=== PATIENT | female | born 1955 | race Hispanic/Latino ===

== ENCOUNTER 2023-10-01 19:46 | Inpatient (IN) | payer OTHER, MEDICARE ==
[~2023-10-01] VITALS: Ht 152.4 cm; Wt 69.5 kg
[~2023-10-01 19:46] MED LIST: CYCL10TA16 PO; IBUP-2070 PO
[2023-10-01] MEDS: ONDANSETRON 4MG INJ IVP ONE (20:30)
[2023-10-01] MEDS ORDERED: PROPOFOL 10 MG/ML 20ML VIAL IV SCH (20:30)
[2023-10-01 20:39] LABS: BASOPHILS # (AUTO) 0.04 K/uL (0.00-0.20); BASOPHILS % (AUTO) 0.4 % (0.0-5.0); EOSINOPHILS # (AUTO) 0.11 K/uL (0.00-0.70); EOSINOPHILS % (AUTO) 1.2 % (0.0-8.0); IMMATURE GRANULOCYTE ABSOLUTE 0.04 K/uL (0-1); LYMPHOCYTES # (AUTO) 2.7 K/uL (1.0-4.8); LYMPHOCYTES % (AUTO) 30.2 % (21.0-51.0); MEAN CORPUSCULAR HEMOGLOBIN 28.1 pg (27.0-33.0); MEAN CORPUSCULAR HGB CONC 32.5 g/dL (32.0-36.0); MEAN CORPUSCULAR VOLUME 86.6 fL (79-99); MONOCYTES # (AUTO) 0.6 K/uL (0.1-1.0); MONOCYTES % (AUTO) 7.1 % (3.0-13.0); NEUTROPHILS # (AUTO) 5.4 K/uL (1.8-7.7); NEUTROPHILS % (AUTO) 60.7 % (40.0-77.0); PLATELET COUNT (AUTO) 283 K/uL (130-400); RED BLOOD CELL COUNT(AUTO) 4.62 MIL/uL (4.00-5.50); RED CELL DISTRIBUTION WIDTH 15.2 % (11.0-15.5); WHITE BLOOD COUNT (AUTO) 8.9 K/uL (4.8-10.8)
[2023-10-01 20:41] VITALS: PULSE 90; RESP 21; O2SAT 100
[2023-10-01] MEDS: PROPOFOL 10 MG/ML 20ML VIAL IV SCH (20:45)
[2023-10-01 20:48] LABS: CREATININE 0.9 mg/dL (0.5-1.5); POTASSIUM 3.6 mmol/L (3.5-5.1)
[2023-10-01 20:52] LABS: ALBUMIN 3.4 g/dL (3.5-5.0); BILIRUBIN,TOTAL 0.3 mg/dL (0.2-1.0); TOTAL PROTEIN, SERUM 8.2 g/dL (6.0-8.3)
[2023-10-01] MEDS: MORPHINE 4 MG SYG ONE (20:57)
[2023-10-01] MEDS: ONDANSETRON 4MG INJ ONE (20:57)
[2023-10-01] MEDS: PROPOFOL 10 MG/ML 20ML VIAL IV ONE (21:03)
[2023-10-01] MEDS: MORPHINE 4 MG SYG IVP ONE (21:15)
[2023-10-01 22:39] LABS: APPEARANCE,URINE CLEAR (CLEAR); BILIRUBIN,URINE NEGATIVE (NEGATIVE); COLOR,URINE LIGHT-YELLOW (YELLOW); GLUCOSE, URINE (UA) NEGATIVE (NEGATIVE); KETONES,URINE NEGATIVE (NEGATIVE); LEUKOCYTE ESTERASE ,URINE NEGATIVE Leu/uL (NEGATIVE); NITRATE,URINE NEGATIVE (NEGATIVE); OCCULT BLOOD,URINE NEGATIVE (NEGATIVE); PH,URINE 5.5 (5.0-8.0); PROTEIN,URINE NEGATIVE (NEGATIVE); UROBILINOGEN,URINE 0.2 mg/dL (0.2-1.0)
[2023-10-01 22:42] LABS: ADD UA MICROSCOPIC YES
[2023-10-01 22:43] LABS: BACTERIA,URINE RARE /HPF (None Seen); SQUAMOUS EPITHELIAL CELL,UR RARE /HPF (0-2)
[2023-10-01] MEDS ORDERED: MORPHINE 4 MG SYG IM PRN (23:30)
[2023-10-01] MEDS ORDERED: ONDANSETRON 4MG INJ IVP PRN (23:30)
[2023-10-02] VITALS (7 sets, daily range): BP systolic 116–144; BP diastolic 72–89; PULSE 82–101; RESP 16–20; O2SAT 96–97
[2023-10-02] MEDS: MORPHINE 4 MG SYG IV PRN (01:08)
[2023-10-02] MEDS: MORPHINE 4 MG SYG ONE (01:08)
[2023-10-02] MEDS ORDERED: LEVO50CA4 PO (05:36)
[2023-10-02] MEDS ORDERED: ALBU6.7H14 IH (05:36)
[2023-10-02] MEDS ORDERED: [UNRECOGNIZED DRUG - CODE] PO (05:37)
[2023-10-02] MEDS: MORPHINE 4 MG SYG IM PRN (15:31)
[2023-10-03] VITALS: BP 122/76; PULSE 88; RESP 19
[2023-10-03] MEDS: MORPHINE 4 MG SYG IV PRN (03:50)
[2023-10-03 04:00] VITALS: BP 127/82; PULSE 87; RESP 20
[2023-10-03 08:00] VITALS: BP 127/74; PULSE 84; RESP 20; O2SAT 97
[2023-10-03 12:00] VITALS: BP 119/69; PULSE 82; RESP 20
[2023-10-03 16:00] VITALS: BP 119/66; PULSE 90; RESP 20
[2023-10-03 20:00] VITALS: BP 112/72; PULSE 95; RESP 20; O2SAT 96
[2023-10-03] MEDS: CYCLOBENZAPRINE HCL 10 MG TABLET PO PRN (20:57)
[2023-10-03] MEDS: TRAMADOL HCL 50 MG TABLET PO PRN (20:57)
[2023-10-04 00:18] VITALS: BP 107/73; PULSE 92; RESP 18
[2023-10-04 04:05] LABS: BASOPHILS # (AUTO) 0.03 K/uL (0.00-0.20); BASOPHILS % (AUTO) 0.3 % (0.0-5.0); EOSINOPHILS # (AUTO) 0.17 K/uL (0.00-0.70); EOSINOPHILS % (AUTO) 1.7 % (0.0-8.0); HEMATOCRIT 33.2 % (36-48); IMMATURE GRANULOCYTE ABSOLUTE 0.04 K/uL (0-1); LYMPHOCYTES # (AUTO) 1.9 K/uL (1.0-4.8); LYMPHOCYTES % (AUTO) 19.3 % (21.0-51.0); MEAN CORPUSCULAR HEMOGLOBIN 27.6 pg (27.0-33.0); MEAN CORPUSCULAR HGB CONC 32.2 g/dL (32.0-36.0); MEAN CORPUSCULAR VOLUME 85.8 fL (79-99); MONOCYTES # (AUTO) 1.3 K/uL (0.1-1.0); MONOCYTES % (AUTO) 12.9 % (3.0-13.0); NEUTROPHILS # (AUTO) 6.4 K/uL (1.8-7.7); NEUTROPHILS % (AUTO) 65.4 % (40.0-77.0); PLATELET COUNT (AUTO) 221 K/uL (130-400); RED BLOOD CELL COUNT(AUTO) 3.87 MIL/uL (4.00-5.50); RED CELL DISTRIBUTION WIDTH 15.2 % (11.0-15.5); WHITE BLOOD COUNT (AUTO) 9.8 K/uL (4.8-10.8)
[2023-10-04 04:19] LABS: ALBUMIN 2.6 g/dL (3.5-5.0); BILIRUBIN,TOTAL 0.6 mg/dL (0.2-1.0); CREATININE 0.7 mg/dL (0.5-1.5); POTASSIUM 3.8 mmol/L (3.5-5.1); TOTAL PROTEIN, SERUM 7.3 g/dL (6.0-8.3)
[2023-10-04 04:22] VITALS: BP 109/66; PULSE 84; RESP 18
[2023-10-04 08:00] VITALS: BP 126/76; PULSE 82; RESP 18; O2SAT 97
[2023-10-04 11:47] VITALS: BP 138/76; PULSE 89; RESP 16
[2023-10-04 16:00] VITALS: BP 111/76; PULSE 96; RESP 18
[2023-10-04 20:00] VITALS: BP 121/75; PULSE 93; RESP 20; O2SAT 98
[2023-10-05] VITALS (28 sets, daily range): BP systolic 102–145; BP diastolic 55–87; PULSE 75–105; RESP 15–20; O2SAT 97–98
[2023-10-05] MEDS ORDERED: ROCURONIUM BROMIDE 10MG/1ML 5ML VL ONE (11:19)
[2023-10-05] MEDS ORDERED: MIDAZOLAM HCL 1 MG/ML 2ML VIAL ONE (11:19)
[2023-10-05] MEDS ORDERED: PROPOFOL 10 MG/ML 20ML VIAL IV ONE (11:19)
[2023-10-05] MEDS ORDERED: SUCCINYLCHOLINE CHLORIDE 20 MG/ML 10 ML VIAL ONE (11:19)
[2023-10-05] MEDS ORDERED: FENTANYL CITRATE PF 50 MCG/1 ML 2ML VIAL ONE (11:19)
[2023-10-05] MEDS: CEFAZOLIN SODIUM 2 GM VIAL IVPB ONE (11:50)
[2023-10-05] MEDS ORDERED: CEFAZOLIN SODIUM 1 GM VIAL ONE (11:58)
[2023-10-05] MEDS: HYDROCODONE/ACETAMINOPHEN 5/325 MG TAB PO PRN (18:46)
[2023-10-05] MEDS: CEFAZOLIN SODIUM 2 GM VIAL IVPB SCH (19:50)
[2023-10-05] MEDS: CEFAZOLIN SODIUM 1 GM VIAL IVPB SCH (20:18)
[2023-10-05] MEDS ORDERED: HYDROCODONE/ACETAMINOPHEN 5/325 MG TAB PO PRN ×2 (20:30)
[2023-10-06] VITALS (9 sets, daily range): BP systolic 98–128; BP diastolic 58–70; PULSE 54–90; RESP 16–20; O2SAT 95–98
[2023-10-07] VITALS (7 sets, daily range): BP systolic 105–127; BP diastolic 47–70; PULSE 90–94; RESP 17–20; O2SAT 97–98
[2023-10-08] VITALS: BP 116/67; PULSE 86; RESP 18
[2023-10-08 04:00] VITALS: BP 122/69; PULSE 82; RESP 18
[2023-10-08 08:00] VITALS: BP 113/72; PULSE 85; RESP 20; O2SAT 97
[2023-10-08 11:00] VITALS: BP 123/68; PULSE 88; RESP 18
[2023-10-08 16:00] VITALS: BP 128/78; PULSE 94; RESP 18
[2023-10-08 20:00] VITALS: BP 115/69; PULSE 91; RESP 20
[2023-10-09] VITALS (7 sets, daily range): BP systolic 116–133; BP diastolic 68–79; PULSE 75–91; RESP 16–20; O2SAT 97
[2023-10-09] MEDS: DOCUSATE SODIUM 100 MG CAP PO SCH (13:00)
[2023-10-09 13:16] LABS: BASOPHILS # (AUTO) 0.03 K/uL (0.00-0.20); BASOPHILS % (AUTO) 0.4 % (0.0-5.0); EOSINOPHILS # (AUTO) 0.16 K/uL (0.00-0.70); EOSINOPHILS % (AUTO) 2.3 % (0.0-8.0); HEMATOCRIT 31.9 % (36-48); IMMATURE GRANULOCYTE ABSOLUTE 0.02 K/uL (0-1); LYMPHOCYTES # (AUTO) 1.5 K/uL (1.0-4.8); LYMPHOCYTES % (AUTO) 21.2 % (21.0-51.0); MEAN CORPUSCULAR HGB CONC 32.6 g/dL (32.0-36.0); MEAN CORPUSCULAR VOLUME 85.8 fL (79-99); MONOCYTES # (AUTO) 0.7 K/uL (0.1-1.0); MONOCYTES % (AUTO) 10.1 % (3.0-13.0); NEUTROPHILS # (AUTO) 4.6 K/uL (1.8-7.7); NEUTROPHILS % (AUTO) 65.7 % (40.0-77.0); PLATELET COUNT (AUTO) 378 K/uL (130-400); RED BLOOD CELL COUNT(AUTO) 3.72 MIL/uL (4.00-5.50); RED CELL DISTRIBUTION WIDTH 15.4 % (11.0-15.5)
[2023-10-09 13:29] LABS: INR 0.97 (0.85-1.15); PROTHROMBIN TIME 11.3 SEC (9.6-11.6)
[2023-10-09 13:30] LABS: PARTIAL THROMBOPLASTIN TIME 30.1 SEC (26.3-35.5)
[2023-10-09 13:46] LABS: ALBUMIN 2.2 g/dL (3.5-5.0); BILIRUBIN,TOTAL 0.4 mg/dL (0.2-1.0); CREATININE 0.8 mg/dL (0.5-1.5); MAGNESIUM 1.9 mg/dL (1.80-2.40); POTASSIUM 3.8 mmol/L (3.5-5.1); THYROID STIMULATING HORMONE 5.04 uIU/mL (0.36-3.74); TOTAL PROTEIN, SERUM 7.4 g/dL (6.0-8.3)
[2023-10-09] MEDS: FAMOTIDINE 20MG TAB PO SCH (20:48)
[2023-10-09] MEDS: ENOXAPARIN SODIUM 40 MG/0.4 ML SYRINGE SQ SCH (20:49)
[2023-10-09] MEDS: BENZOCAINE/MENTH/CETYLPYRD CL 1 EACH LOZENGE MM PRN (22:11)
[2023-10-10] VITALS (7 sets, daily range): BP systolic 111–135; BP diastolic 73–81; PULSE 75–90; RESP 17–20; O2SAT 98
[2023-10-10] MEDS: LEVOTHYROXINE 50 MCG TABLET PO SCH (06:38)
[2023-10-10] MEDS ORDERED: NON-FORMULARY MEDICATION 1 EACH (Levothyroxine Sodium (Levothyroxine) 50 MCG) PO SCH (07:30)
[2023-10-10] MEDS: MULTIVITAMIN PO SCH (09:00)
[2023-10-10] MEDS ORDERED: MAGNESIUM 2GM PREMIX 50ML 50 ML IV PRN (09:00)
[2023-10-10] MEDS ORDERED: POTASSIUM CHLORIDE 20MEQ/100ML 100 ML IV PRN (09:00)
[2023-10-10 09:14] LABS: BASOPHILS # (AUTO) 0.05 K/uL (0.00-0.20); BASOPHILS % (AUTO) 0.7 % (0.0-5.0); EOSINOPHILS # (AUTO) 0.35 K/uL (0.00-0.70); EOSINOPHILS % (AUTO) 4.6 % (0.0-8.0); HEMATOCRIT 33.4 % (36-48); IMMATURE GRANULOCYTE ABSOLUTE 0.03 K/uL (0-1); LYMPHOCYTES # (AUTO) 1.8 K/uL (1.0-4.8); LYMPHOCYTES % (AUTO) 23.7 % (21.0-51.0); MEAN CORPUSCULAR HEMOGLOBIN 27.8 pg (27.0-33.0); MEAN CORPUSCULAR HGB CONC 32.3 g/dL (32.0-36.0); MEAN CORPUSCULAR VOLUME 85.9 fL (79-99); MONOCYTES # (AUTO) 0.7 K/uL (0.1-1.0); MONOCYTES % (AUTO) 9.1 % (3.0-13.0); NEUTROPHILS # (AUTO) 4.7 K/uL (1.8-7.7); NEUTROPHILS % (AUTO) 61.5 % (40.0-77.0); PLATELET COUNT (AUTO) 382 K/uL (130-400); RED BLOOD CELL COUNT(AUTO) 3.89 MIL/uL (4.00-5.50); RED CELL DISTRIBUTION WIDTH 15.4 % (11.0-15.5); WHITE BLOOD COUNT (AUTO) 7.7 K/uL (4.8-10.8)
[2023-10-10 09:23] LABS: CREATININE 0.7 mg/dL (0.5-1.5); POTASSIUM 3.9 mmol/L (3.5-5.1)
[2023-10-10 09:28] LABS: ALBUMIN 2.3 g/dL (3.5-5.0); BILIRUBIN,TOTAL 0.5 mg/dL (0.2-1.0); TOTAL PROTEIN, SERUM 7.7 g/dL (6.0-8.3)
[2023-10-10] MEDS ORDERED: IOHEXOL 350 MG/ML 100ML INFUS..BTL IV ONE (12:33)
[2023-10-10] MEDS: HYDROCODONE/ACETAMINOPHEN 5/325 MG TAB PO PRN ×2 (15:39→22:40)
[2023-10-11] VITALS (9 sets, daily range): BP systolic 124–140; BP diastolic 71–87; PULSE 72–84; RESP 16–19; O2SAT 98–99
[2023-10-11] MEDS: HYDROCODONE/ACETAMINOPHEN 5/325 MG TAB PO PRN (03:01)
[2023-10-11 03:45] LABS: BASOPHILS # (AUTO) 0.05 K/uL (0.00-0.20); BASOPHILS % (AUTO) 0.6 % (0.0-5.0); EOSINOPHILS # (AUTO) 0.26 K/uL (0.00-0.70); EOSINOPHILS % (AUTO) 3.2 % (0.0-8.0); HEMATOCRIT 32.3 % (36-48); IMMATURE GRANULOCYTE ABSOLUTE 0.03 K/uL (0-1); LYMPHOCYTES # (AUTO) 2.7 K/uL (1.0-4.8); LYMPHOCYTES % (AUTO) 32.9 % (21.0-51.0); MEAN CORPUSCULAR HEMOGLOBIN 27.7 pg (27.0-33.0); MEAN CORPUSCULAR HGB CONC 32.2 g/dL (32.0-36.0); MEAN CORPUSCULAR VOLUME 86.1 fL (79-99); MONOCYTES # (AUTO) 0.8 K/uL (0.1-1.0); NEUTROPHILS # (AUTO) 4.3 K/uL (1.8-7.7); NEUTROPHILS % (AUTO) 52.9 % (40.0-77.0); PLATELET COUNT (AUTO) 426 K/uL (130-400); RED BLOOD CELL COUNT(AUTO) 3.75 MIL/uL (4.00-5.50); RED CELL DISTRIBUTION WIDTH 15.3 % (11.0-15.5); WHITE BLOOD COUNT (AUTO) 8.2 K/uL (4.8-10.8)
[2023-10-11 04:02] LABS: ALBUMIN 2.2 g/dL (3.5-5.0); BILIRUBIN,TOTAL 0.5 mg/dL (0.2-1.0); POTASSIUM 3.7 mmol/L (3.5-5.1); TOTAL PROTEIN, SERUM 7.2 g/dL (6.0-8.3)
[2023-10-11] MEDS: DOCUSATE SODIUM 100 MG CAP PO SCH (11:01)
[2023-10-12] VITALS (8 sets, daily range): BP systolic 127–155; BP diastolic 74–86; PULSE 78–84; RESP 18–19; O2SAT 98–99
[2023-10-12 04:11] LABS: BASOPHILS # (AUTO) 0.06 K/uL (0.00-0.20); BASOPHILS % (AUTO) 0.7 % (0.0-5.0); EOSINOPHILS # (AUTO) 0.28 K/uL (0.00-0.70); EOSINOPHILS % (AUTO) 3.3 % (0.0-8.0); HEMATOCRIT 34.4 % (36-48); IMMATURE GRANULOCYTE ABSOLUTE 0.05 K/uL (0-1); LYMPHOCYTES # (AUTO) 2.6 K/uL (1.0-4.8); LYMPHOCYTES % (AUTO) 30.2 % (21.0-51.0); MEAN CORPUSCULAR HEMOGLOBIN 27.8 pg (27.0-33.0); MEAN CORPUSCULAR HGB CONC 32.3 g/dL (32.0-36.0); MONOCYTES # (AUTO) 0.7 K/uL (0.1-1.0); MONOCYTES % (AUTO) 8.7 % (3.0-13.0); NEUTROPHILS # (AUTO) 4.8 K/uL (1.8-7.7); NEUTROPHILS % (AUTO) 56.5 % (40.0-77.0); PLATELET COUNT (AUTO) 479 K/uL (130-400); RED CELL DISTRIBUTION WIDTH 15.3 % (11.0-15.5); WHITE BLOOD COUNT (AUTO) 8.5 K/uL (4.8-10.8)
[2023-10-12 04:22] LABS: ALBUMIN 2.4 g/dL (3.5-5.0); BILIRUBIN,TOTAL 0.5 mg/dL (0.2-1.0); CREATININE 0.8 mg/dL (0.5-1.5); TOTAL PROTEIN, SERUM 7.6 g/dL (6.0-8.3)
[2023-10-13 04:29] LABS: BASOPHILS # (AUTO) 0.05 K/uL (0.00-0.20); BASOPHILS % (AUTO) 0.5 % (0.0-5.0); EOSINOPHILS # (AUTO) 0.26 K/uL (0.00-0.70); EOSINOPHILS % (AUTO) 2.7 % (0.0-8.0); HEMATOCRIT 33.5 % (36-48); IMMATURE GRANULOCYTE ABSOLUTE 0.05 K/uL (0-1); LYMPHOCYTES # (AUTO) 3.3 K/uL (1.0-4.8); LYMPHOCYTES % (AUTO) 34.1 % (21.0-51.0); MEAN CORPUSCULAR HEMOGLOBIN 27.5 pg (27.0-33.0); MEAN CORPUSCULAR HGB CONC 31.6 g/dL (32.0-36.0); MEAN CORPUSCULAR VOLUME 86.8 fL (79-99); MONOCYTES # (AUTO) 0.8 K/uL (0.1-1.0); MONOCYTES % (AUTO) 8.2 % (3.0-13.0); NEUTROPHILS # (AUTO) 5.2 K/uL (1.8-7.7); PLATELET COUNT (AUTO) 498 K/uL (130-400); RED BLOOD CELL COUNT(AUTO) 3.86 MIL/uL (4.00-5.50); RED CELL DISTRIBUTION WIDTH 15.5 % (11.0-15.5); WHITE BLOOD COUNT (AUTO) 9.6 K/uL (4.8-10.8)
[2023-10-13 04:42] LABS: ALBUMIN 2.4 g/dL (3.5-5.0); BILIRUBIN,TOTAL 0.4 mg/dL (0.2-1.0); CREATININE 0.8 mg/dL (0.5-1.5); TOTAL PROTEIN, SERUM 7.6 g/dL (6.0-8.3)
[2023-10-13 04:45] VITALS: BP 133/81; PULSE 78; RESP 16
[2023-10-13 08:00] VITALS: BP 131/77; PULSE 69; RESP 18; O2SAT 99
[2023-10-13 12:00] VITALS: BP 110/82; PULSE 83; RESP 18
[2023-10-13 16:00] VITALS: BP 135/76; PULSE 84; RESP 18
[2023-10-13 19:00] VITALS: BP 142/83; PULSE 78; RESP 20
[2023-10-13 20:00] VITALS: O2SAT 98
[2023-10-14] VITALS: BP 131/78; PULSE 77; RESP 20
[2023-10-14 04:00] VITALS: BP 147/82; PULSE 75; RESP 20
[2023-10-14 08:00] VITALS: BP 120/72; PULSE 70; RESP 16; O2SAT 98
[2023-10-14 11:52] VITALS: BP 127/77; PULSE 86; RESP 16
[2023-10-14 16:00] VITALS: BP 129/88; PULSE 97; RESP 18
[2023-10-14 20:00] VITALS: BP 104/74; PULSE 86; RESP 20; O2SAT 99
[2023-10-14] MEDS: HYDROCODONE/ACETAMINOPHEN 5/325 MG TAB PO PRN (21:13)
[2023-10-15] VITALS (9 sets, daily range): BP systolic 113–136; BP diastolic 61–79; PULSE 67–84; RESP 18–20; O2SAT 97–99
[2023-10-15] MEDS: HYDROMORPHONE 0.5 MG SYG (0.5MG/0.5ML) IVP ONE (22:00)
[2023-10-16] VITALS (8 sets, daily range): BP systolic 118–142; BP diastolic 66–82; PULSE 71–83; RESP 18–20; O2SAT 95
[2023-10-16] MEDS: HYDROCODONE/ACETAMINOPHEN 5/325 MG TAB PO PRN (03:16)
[2023-10-16 10:21] LABS: BASOPHILS # (AUTO) 0.06 K/uL (0.00-0.20); BASOPHILS % (AUTO) 0.9 % (0.0-5.0); EOSINOPHILS # (AUTO) 0.18 K/uL (0.00-0.70); EOSINOPHILS % (AUTO) 2.8 % (0.0-8.0); HEMATOCRIT 37.6 % (36-48); IMMATURE GRANULOCYTE ABSOLUTE 0.02 K/uL (0-1); LYMPHOCYTES # (AUTO) 1.7 K/uL (1.0-4.8); MEAN CORPUSCULAR HEMOGLOBIN 28.2 pg (27.0-33.0); MEAN CORPUSCULAR HGB CONC 31.1 g/dL (32.0-36.0); MEAN CORPUSCULAR VOLUME 90.6 fL (79-99); MONOCYTES # (AUTO) 0.5 K/uL (0.1-1.0); MONOCYTES % (AUTO) 7.7 % (3.0-13.0); NEUTROPHILS # (AUTO) 4.1 K/uL (1.8-7.7); NEUTROPHILS % (AUTO) 62.3 % (40.0-77.0); PLATELET COUNT (AUTO) 545 K/uL (130-400); RED BLOOD CELL COUNT(AUTO) 4.15 MIL/uL (4.00-5.50); RED CELL DISTRIBUTION WIDTH 15.4 % (11.0-15.5); WHITE BLOOD COUNT (AUTO) 6.5 K/uL (4.8-10.8)
[2023-10-16 10:32] LABS: ALBUMIN 2.6 g/dL (3.5-5.0); BILIRUBIN,TOTAL 0.3 mg/dL (0.2-1.0); CREATININE 0.8 mg/dL (0.5-1.5); POTASSIUM 3.5 mmol/L (3.5-5.1); TOTAL PROTEIN, SERUM 7.9 g/dL (6.0-8.3)
[2023-10-16] MEDS ORDERED: HYDROXYZINE 25 MG TABLET PO ONE (14:30)
[2023-10-16] MEDS: KCL 20 MEQ ERTAB PO PRN (19:52)
[2023-10-17] VITALS (8 sets, daily range): BP systolic 114–140; BP diastolic 74–97; PULSE 76–87; RESP 16–20; O2SAT 95–99
[2023-10-17] MEDS: HYDROCODONE/ACETAMINOPHEN 5/325 MG TAB PO PRN (14:51)
[2023-10-18] MEDS: HYDROXYZINE 25 MG TABLET PO PRN (00:32)
[2023-10-18 04:00] VITALS: BP 110/80; PULSE 64; RESP 16
[2023-10-18 08:00] VITALS: BP 126/71; PULSE 72; RESP 20; O2SAT 99
[2023-10-18] MEDS: POLYETHYLENE GLYCOL 3350 17 GM POWD.PACK PO PRN (09:15)
[2023-10-18 12:00] VITALS: BP 122/72; PULSE 80; RESP 20
[2023-10-18 16:00] VITALS: BP 120/71; PULSE 80; RESP 20
[2023-10-18 20:00] VITALS: BP 140/86; PULSE 78; RESP 20
[2023-10-18 20:45] VITALS: O2SAT 93
[2023-10-19] VITALS (8 sets, daily range): BP systolic 109–139; BP diastolic 62–84; PULSE 71–86; RESP 17–19; O2SAT 93
[2023-10-20] VITALS: BP 125/72; PULSE 82; RESP 16
[2023-10-20 04:00] VITALS: BP 129/78; PULSE 71; RESP 20
[2023-10-20 08:00] VITALS: BP 126/71; PULSE 67; RESP 16; O2SAT 97
[2023-10-20] MEDS: DOCUSATE SODIUM 100 MG CAP PO SCH (10:08)
[2023-10-20 16:00] VITALS: BP 138/69; PULSE 83; RESP 16
[2023-10-20 19:15] VITALS: O2SAT 98
[2023-10-20 20:00] VITALS: BP 126/35; PULSE 69; RESP 16
[2023-10-21] VITALS (8 sets, daily range): BP systolic 117–127; BP diastolic 63–83; PULSE 73–88; RESP 16–19; O2SAT 97–98
[2023-10-21] MEDS: HYDROCODONE/ACETAMINOPHEN 5/325 MG TAB PO PRN (14:06)
[2023-10-22] VITALS (7 sets, daily range): BP systolic 108–129; BP diastolic 70–81; PULSE 67–93; RESP 16–20; O2SAT 97–99
[2023-10-22] MEDS: HYDROCODONE/ACETAMINOPHEN 5/325 MG TAB PO PRN (09:16)
[2023-10-22 21:26] LABS: CREATININE 0.8 mg/dL (0.5-1.5); POTASSIUM 4.3 mmol/L (3.5-5.1)
[2023-10-22 21:31] LABS: ALBUMIN 2.9 g/dL (3.5-5.0); BILIRUBIN,TOTAL 0.3 mg/dL (0.2-1.0); TOTAL PROTEIN, SERUM 8.5 g/dL (6.0-8.3)
[2023-10-22] MEDS ORDERED: IOHEXOL-350 50ML VIAL IV ONE (22:08)
[2023-10-22] MEDS ORDERED: IOHEXOL 350 MG/ML 100ML INFUS..BTL IV ONE (22:08)
[2023-10-23] VITALS (7 sets, daily range): BP systolic 107–129; BP diastolic 64–81; PULSE 64–83; RESP 16–20; O2SAT 96–98
[2023-10-24] VITALS (7 sets, daily range): BP systolic 108–137; BP diastolic 63–90; PULSE 75–90; RESP 16–19; O2SAT 98–100
[2023-10-25] VITALS (8 sets, daily range): BP systolic 109–136; BP diastolic 60–90; PULSE 73–88; RESP 18–20; O2SAT 97–98
[2023-10-25 07:08] LABS: BASOPHILS # (AUTO) 0.05 K/uL (0.00-0.20); BASOPHILS % (AUTO) 0.8 % (0.0-5.0); EOSINOPHILS # (AUTO) 0.19 K/uL (0.00-0.70); EOSINOPHILS % (AUTO) 3.1 % (0.0-8.0); HEMATOCRIT 38.6 % (36-48); IMMATURE GRANULOCYTE ABSOLUTE 0.02 K/uL (0-1); LYMPHOCYTES # (AUTO) 2.4 K/uL (1.0-4.8); MEAN CORPUSCULAR HGB CONC 31.9 g/dL (32.0-36.0); MEAN CORPUSCULAR VOLUME 87.9 fL (79-99); MONOCYTES # (AUTO) 0.5 K/uL (0.1-1.0); MONOCYTES % (AUTO) 8.7 % (3.0-13.0); NEUTROPHILS % (AUTO) 48.1 % (40.0-77.0); PLATELET COUNT (AUTO) 429 K/uL (130-400); RED BLOOD CELL COUNT(AUTO) 4.39 MIL/uL (4.00-5.50); RED CELL DISTRIBUTION WIDTH 14.6 % (11.0-15.5); WHITE BLOOD COUNT (AUTO) 6.2 K/uL (4.8-10.8)
[2023-10-25 07:30] LABS: ALBUMIN 2.8 g/dL (3.5-5.0); BILIRUBIN,TOTAL 0.3 mg/dL (0.2-1.0); CREATININE 0.7 mg/dL (0.5-1.5)
[2023-10-26] VITALS (9 sets, daily range): BP systolic 106–149; BP diastolic 63–90; PULSE 68–82; RESP 16–20; O2SAT 97–98
[2023-10-26] MEDS ORDERED: HYDROCODONE/ACETAMINOPHEN 5/325 MG TAB PO PRN (15:30)
[2023-10-26] MEDS: HYDROCODONE/ACETAMINOPHEN 5/325 MG TAB PO PRN (15:34)
[2023-10-26] MEDS: SIMETHICONE 80 MG TAB.CHEW PO PRN (17:42)
[2023-10-27] VITALS (7 sets, daily range): BP systolic 101–140; BP diastolic 66–80; PULSE 68–89; RESP 18–20; O2SAT 95–97
[2023-10-28 03:43] VITALS: BP 130/79; PULSE 67; RESP 18
[2023-10-28 08:00] VITALS: BP 124/84; PULSE 70; RESP 18; O2SAT 99
[2023-10-28 12:00] VITALS: BP 109/68; PULSE 85; RESP 20
[2023-10-28 16:00] VITALS: BP 110/68; PULSE 81; RESP 20
[2023-10-28 20:00] VITALS: BP 142/76; PULSE 81; RESP 17; O2SAT 96
[2023-10-28 23:30] VITALS: BP 123/71; PULSE 74; RESP 18
[2023-10-29] VITALS (8 sets, daily range): BP systolic 104–141; BP diastolic 66–89; PULSE 63–80; RESP 17–20; O2SAT 95–99
[2023-10-30] VITALS (8 sets, daily range): BP systolic 115–139; BP diastolic 73–77; PULSE 64–86; RESP 16–19; O2SAT 94–100
[2023-10-30] MEDS: CITALOPRAM 20 MG TABLET PO SCH (20:51)
[2023-10-31] VITALS (8 sets, daily range): BP systolic 118–147; BP diastolic 74–86; PULSE 73–84; RESP 16–20; O2SAT 96–98
[2023-10-31] MEDS: HYDROCODONE/ACETAMINOPHEN 5/325 MG TAB PO PRN (18:45)
[2023-11-01] VITALS (8 sets, daily range): BP systolic 114–131; BP diastolic 65–82; PULSE 65–80; RESP 16–18; O2SAT 96–99
[2023-11-01 06:12] LABS: MEAN CORPUSCULAR HEMOGLOBIN 27.7 pg (27.0-33.0); MEAN CORPUSCULAR HGB CONC 31.6 g/dL (32.0-36.0); MEAN CORPUSCULAR VOLUME 87.8 fL (79-99); RED BLOOD CELL COUNT(AUTO) 4.33 MIL/uL (4.00-5.50); RED CELL DISTRIBUTION WIDTH 14.4 % (11.0-15.5); WHITE BLOOD COUNT (AUTO) 6.3 K/uL (4.8-10.8)
[2023-11-01 06:46] LABS: CREATININE 0.9 mg/dL (0.5-1.5); POTASSIUM 3.7 mmol/L (3.5-5.1)
[2023-11-02] VITALS (8 sets, daily range): BP systolic 114–134; BP diastolic 68–92; PULSE 70–84; RESP 16–20; O2SAT 97–98
[2023-11-03] VITALS (8 sets, daily range): BP systolic 101–142; BP diastolic 53–81; PULSE 72–92; RESP 18–20; O2SAT 97–98
[2023-11-03] MEDS: SIMETHICONE 80 MG TAB.CHEW PO PRN (09:27)
[2023-11-04] VITALS (8 sets, daily range): BP systolic 116–142; BP diastolic 66–89; PULSE 74–87; RESP 16–18; O2SAT 95–99
[2023-11-04 11:11] LABS: CREATININE 0.7 mg/dL (0.5-1.5); POTASSIUM 3.8 mmol/L (3.5-5.1)
[2023-11-04 11:18] LABS: BASOPHILS # (AUTO) 0.04 K/uL (0.00-0.20); BASOPHILS % (AUTO) 0.5 % (0.0-5.0); EOSINOPHILS # (AUTO) 0.03 K/uL (0.00-0.70); EOSINOPHILS % (AUTO) 0.4 % (0.0-8.0); HEMATOCRIT 40.1 % (36-48); IMMATURE GRANULOCYTE ABSOLUTE 0.02 K/uL (0-1); LYMPHOCYTES # (AUTO) 1.5 K/uL (1.0-4.8); LYMPHOCYTES % (AUTO) 19.9 % (21.0-51.0); MEAN CORPUSCULAR HEMOGLOBIN 27.8 pg (27.0-33.0); MEAN CORPUSCULAR HGB CONC 32.4 g/dL (32.0-36.0); MEAN CORPUSCULAR VOLUME 85.9 fL (79-99); MONOCYTES # (AUTO) 0.5 K/uL (0.1-1.0); MONOCYTES % (AUTO) 6.1 % (3.0-13.0); NEUTROPHILS # (AUTO) 5.4 K/uL (1.8-7.7); NEUTROPHILS % (AUTO) 72.8 % (40.0-77.0); PLATELET COUNT (AUTO) 303 K/uL (130-400); RED BLOOD CELL COUNT(AUTO) 4.67 MIL/uL (4.00-5.50); RED CELL DISTRIBUTION WIDTH 14.6 % (11.0-15.5); WHITE BLOOD COUNT (AUTO) 7.4 K/uL (4.8-10.8)
[2023-11-04] MEDS: HYDROCODONE/ACETAMINOPHEN 5/325 MG TAB PO PRN (16:59)
[2023-11-04] MEDS: FLUTICASONE PROPIONATE 50MCG/SPRAY 16 GM BOTTLE EN SCH (22:36)
[2023-11-05] VITALS (9 sets, daily range): BP systolic 99–128; BP diastolic 67–82; PULSE 75–87; RESP 18–20; O2SAT 95–97
[2023-11-05] MEDS: LORATADINE 10 MG TABLET PO SCH (08:56)
[2023-11-05 11:20] LABS: CREATININE 0.8 mg/dL (0.5-1.5); POTASSIUM 3.8 mmol/L (3.5-5.1)
[2023-11-05] MEDS ORDERED: IPRATROPIUM/ALBUTEROL SULFATE 3 ML SOLUTION IH PRN (15:30)
[2023-11-06] VITALS (9 sets, daily range): BP systolic 117–130; BP diastolic 70–81; PULSE 74–95; RESP 17–20; O2SAT 94–99
[2023-11-06] MEDS ORDERED: HYDROCODONE/ACETAMINOPHEN 7.5/325 MG TAB PO PRN ×2
[2023-11-06] MEDS: HYDROCODONE/ACETAMINOPHEN 5/325 MG TAB PO PRN (00:45)
[2023-11-06 07:29] LABS: HEMATOCRIT 37.4 % (36-48); MEAN CORPUSCULAR HEMOGLOBIN 28.2 pg (27.0-33.0); MEAN CORPUSCULAR HGB CONC 32.6 g/dL (32.0-36.0); MEAN CORPUSCULAR VOLUME 86.4 fL (79-99); RED BLOOD CELL COUNT(AUTO) 4.33 MIL/uL (4.00-5.50); RED CELL DISTRIBUTION WIDTH 14.6 % (11.0-15.5); WHITE BLOOD COUNT (AUTO) 7.3 K/uL (4.8-10.8)
[2023-11-06 08:13] LABS: BILIRUBIN,TOTAL 0.4 mg/dL (0.2-1.0); CREATININE 0.9 mg/dL (0.5-1.5); POTASSIUM 3.4 mmol/L (3.5-5.1); TOTAL PROTEIN, SERUM 8.2 g/dL (6.0-8.3)
[2023-11-06] MEDS: PANTOPRAZOLE 40 MG/VIAL IVP SCH (08:48)
[2023-11-06] MEDS: DICYCLOMINE HCL 20 MG TAB PO PRN (11:41)
[2023-11-06] MEDS ORDERED: SIME80TA12 PO (16:02)
[2023-11-06] MEDS ORDERED: DICY10CA2 PO (16:02)
[2023-11-06] MEDS ORDERED: IBUP-2077 PO (16:02)
[2023-11-06] MEDS ORDERED: DOCU-116 PO (16:02)
[2023-11-06] MEDS ORDERED: ACET-2079 PO (16:02)
[2023-11-06] MEDS ORDERED: FLUT16H NASAL (16:02)
[2023-11-06] MEDS ORDERED: PANT40TA54 PO (16:02)
[2023-11-06] MEDS ORDERED: CITA20TA17 PO (16:02)
[2023-11-06] MEDS ORDERED: LORA10TA7 PO (16:02)
[2023-11-07] VITALS (12 sets, daily range): BP systolic 107–142; BP diastolic 69–80; PULSE 78–96; RESP 17–20; O2SAT 94–97
[2023-11-07] MEDS: MEGESTROL 400 MG/10 ML UDCUP PO SCH (13:04)
[2023-11-07] MEDS ORDERED: MEGE400O4 PO (13:58)
[2023-11-07] MEDS: HYDROCODONE/ACETAMINOPHEN 5/325 MG TAB PO PRN (17:47)
[2023-11-07] MEDS ORDERED: ONDANSETRON ODT 4MG TAB SL PRN (19:00)
[2023-11-08] VITALS (9 sets, daily range): BP systolic 109–137; BP diastolic 68–78; PULSE 66–87; RESP 17–20; O2SAT 96–99
[2023-11-08] MEDS: POTASSIUM CHLORIDE 10% ELIXIR 20 MEQ/15 ML UDCUP PO PRN (11:44)
[2023-11-09] VITALS (7 sets, daily range): BP systolic 116–151; BP diastolic 69–77; PULSE 70–97; RESP 18–19; O2SAT 97
[2023-11-09 08:55] LABS: POTASSIUM 4.1 mmol/L (3.5-5.1)
[2023-11-10 04:00] VITALS: BP 126/76; PULSE 78; RESP 19
[2023-11-10 08:00] VITALS: BP 118/71; PULSE 78; RESP 18
[2023-11-10 08:45] VITALS: O2SAT 96
[2023-11-10 12:00] VITALS: BP 111/74; PULSE 90; RESP 18
[2023-11-10 16:00] VITALS: BP 107/73; PULSE 87; RESP 18
[2023-11-10 20:00] VITALS: BP 128/75; PULSE 85; RESP 17; O2SAT 97
[2023-11-11] VITALS: BP 101/74; PULSE 80; RESP 17
[2023-11-11 04:00] VITALS: BP 117/71; PULSE 81; RESP 17
[2023-11-11 08:00] VITALS: BP 135/78; PULSE 78; RESP 18
[2023-11-11 08:30] VITALS: O2SAT 98
[2023-11-11] MEDS: PANTOPRAZOLE 40 MG TAB DR PO SCH (08:47)
[2023-11-11 12:00] VITALS: BP 125/76; PULSE 87; RESP 18
[2023-11-11 16:00] VITALS: BP 134/79; PULSE 79; RESP 18
== END 2023-11-11 19:00 | disposition home or self-care (01) | DRG 493 ==
LOC: EDH 19:46 → EDHIP 22:28 → 4BH 10-02 00:55 → 4AH 10-06 01:15 → 3CH 10-15 10:45
PROVIDERS: ADMIT Hospitalist; ATTEND Hospitalist
PROC: 0QSH04Z Reposition Left Tibia with Internal Fixation Device, Open Approach (ICD-10-PCS; principal; 2023-10-05 11:27)
PROC: 0QSM35Z Reposition Left Tarsal with External Fixation Device, Percutaneous Approach (ICD-10-PCS; 2023-10-05 11:27)
DX: S82.142A Displaced bicondylar fracture of left tibia, initial encounter for closed fracture (principal); F05 Delirium due to known physiological condition; J90 Pleural effusion, not elsewhere classified; R71.0 Precipitous drop in hematocrit; E03.9 Hypothyroidism, unspecified; K59.00 Constipation, unspecified; J45.909 Unspecified asthma, uncomplicated; K80.20 Calculus of gallbladder without cholecystitis without obstruction; F32.A Depression, unspecified; F43.10 Post-traumatic stress disorder, unspecified; F41.1 Generalized anxiety disorder; S92.192A Other fracture of left talus, initial encounter for closed fracture; F43.20 Adjustment disorder, unspecified; G47.00 Insomnia, unspecified; Z79.899 Other long term (current) drug therapy; Z98.51 Tubal ligation status; Y93.89 Activity, other specified; V89.2XXA Person injured in unspecified motor-vehicle accident, traffic, initial encounter; Y92.488 Other paved roadways as the place of occurrence of the external cause; Y99.8 Other external cause status
CPT/HCPCS: 36415; 71045; 72040; 72170; 72192; 73030; 73202; 73221; 73501; 73552; 73562; 73590; 73600; 73610; 73700; 74177; 76700; 80048; 80053; 81001; 82607; 82746; 82948; 83735; 83880; 84132; 84439; 84443; 84481; 84484; 85025; 85027; 85610; 85730; 86850; 86900; 86901; 94664; C1713; C9113; G0378; J0330; J0690; J1170; J1650; J2250; J2270; J2405; J2704; J3010; J3490; Q9967; A4215; A4221; A4222; A4223; A4649; A6223; A6450